=== PATIENT | male | born 1960 | race African-American/Black ===

== ENCOUNTER 2017-08-31 13:22 | Emergency (ER) | payer OTHER ==
[~2017-08-31] VITALS: Ht 177.8 cm; Wt 72.7 kg
[2017-08-31 14:25] LABS: HEMATOCRIT 41.2 % (38.0-50.0); HEMOGLOBIN 14.3 G/DL (12.5-16.6); MCH 30.8 PG (29.0-34.0); MCHC 34.7 G/DL (30.0-36.0); MCV 88.6 FL (86-99); PLATELET COUNT 389 K/uL (156-360); RBC DIS.WIDTH-CV 12.5 % (11.8-14.6); RBC DIS.WIDTH-SD 40.7 % (39-53); RED BLOOD COUNT 4.65 M/uL (4.00-5.50); WHITE BLOOD COUNT 13.2 K/uL (4.1-10.2)
[2017-08-31 14:36] LABS: ALBUMIN 4.1 g/dL (3.2-4.8); CHLORIDE 98 mEq/L (99-109); POTASSIUM 4.5 mEq/L (3.7-5.4); SODIUM 135 mEq/L (136-147)
[2017-08-31 14:39] LABS: GLUCOSE 125 mg/dL (70-99); TOTAL PROTEIN 8.6 g/dL (6.4-8.3)
[2017-08-31 14:41] LABS: TOTAL BILIRUBIN 0.8 mg/dL (0.0-1.0)
[2017-08-31 14:42] LABS: ALKALINE PHOSPHATASE 76 IU/L (3-129); CREATININE 1.3 mg/dL (0.6-1.3)
[2017-08-31 14:43] LABS: GFR ESTIMATE (CALCULATED) > 59 mL/min/ (58.99-99999); UREA NITROGEN (BUN) 28 mg/dL (9-23)
[2017-08-31 14:44] LABS: AST (GOT) 13 IU/L (2-34)
[2017-08-31 14:45] LABS: ALT (GPT) 6 IU/L (3-49)
[2017-08-31 14:49] LABS: TROP-I INTERPRETATION NEGATIVE; TROPONIN-I < 0.01 ng/mL (0.0-0.30)
[2017-08-31 19:00] VITALS: BP 125/76
== END 2017-08-31 19:35 | disposition short-term general hospital (02) ==
LOC: EME 13:22
DX: R19.03 Right lower quadrant abdominal swelling, mass and lump (principal); C78.00 Secondary malignant neoplasm of unspecified lung; K56.609 Unspecified intestinal obstruction, unspecified as to partial versus complete obstruction; C79.89 Secondary malignant neoplasm of other specified sites; C78.7 Secondary malignant neoplasm of liver and intrahepatic bile duct; C79.71 Secondary malignant neoplasm of right adrenal gland; R18.8 Other ascites; I70.0 Atherosclerosis of aorta; F17.200 Nicotine dependence, unspecified, uncomplicated
CPT/HCPCS: 71046; 71260; 74177; 80053; 81003; 82378; 84484; 85027; 93005; 99281; 99285; J3010; J7030